=== PATIENT | male | born 1965 | race African-American/Black ===

== ENCOUNTER 2018-02-09 22:11 | Inpatient (IN) | payer SELFPAY ==
[~2018-02-09] VITALS: Ht 172.7 cm; Wt 58.5 kg
--- NOTE | 2018-02-09 22:27 | NUR ---
PT AMBULATORY TO ER BED 7. BURNING SENSATION WHEN URINATING W/ LOWER ABD PAIN X 3 DAYS. PT PLACED ON NITROGLYCERIN NEUTRALIZER. VSS/RESP EVEN UNLABORED/NAD NOTED/SKIN WARM AND DRY/AFEBRILE/DENIES N-V-D/AOX4. AWAITNG MD GARDNER.
--- NOTE | 2018-02-09 22:30 | NUR ---
URINE SPECIMEN OBTAINED AND SENT TO THE LAB.
[2018-02-09 23:11] LABS: APPEARANCE,URINE CLOUDY (CLEAR); BILIRUBIN,URINE NEGATIVE (NEGATIVE); BLOOD, URINE 3+ Ery/uL (NEGATIVE); COLOR,URINE YELLOW (YELLOW); KETONES,URINE NEGATIVE (NEGATIVE); LEUKOCYTE ESTERASE ,URINE 3+ (NEGATIVE); NITRITE, URINE POSITIVE (NEGATIVE); PROTEIN,URINE 2+ mg/dl (NEGATIVE); UGLUCOSE NEGATIVE (NEGATIVE); UROBILINOGEN,URINE 0.2 EU/dL (0.2)
[2018-02-09 23:24] LABS: BACTERIA,URINE Few /HPF (None Seen); SQUAMOUS EPITHELIAL CELL,UR Few /HPF (None Seen); WBC,URINE 51-80 /HPF (0-3)
[2018-02-09] MEDS ORDERED: IV NS 0.9% 1,000 ML BAG IV ONE (23:30)
--- NOTE | 2018-02-09 23:33 | NUR ---
PER RADIOLOGY. US TECH PAGED.
--- NOTE | 2018-02-09 23:44 | NUR ---
18G IV TO L AC X 1 ATTEMPT USING ASEPTIC TECH, BLOOD HANDED OVER TO THE LAB AT BEDSIDE. IV FLUSHES EASILY WITH NS, NO S/S INFILTRATION NOTED AT THIS TIME.
[2018-02-09 23:55] LABS: BASOPHILS % (AUTO) 0.1 % (0.0-2.0); HEMATOCRIT 38 % (39-51); HEMOGLOBIN 12.4 g/dL (13.5-17.5); LYMPHOCYTES % (AUTO) 5.6 % (20.0-44.0); MEAN CORPUSCULAR HEMOGLOBIN 33 PG (26.0-33.0); MEAN CORPUSCULAR HGB CONC 32 g/dl (31.0-36.0); MEAN CORPUSCULAR VOLUME 101 fL (80-96); MONOCYTES # (AUTO) 0.4 /CMM (0.1-1.30); MONOCYTES % (AUTO) 2.6 % (2.0-12.0); NEUTROPHILS # (AUTO) 15.6 /CMM (1.8-8.9); NEUTROPHILS % (AUTO) 91.7 % (43.0-81.0); PLATELET COUNT (AUTO) 421 /CMM (150-450); RDW COEFFICIENT OF VARIATION 13.3 (11.5-15.0); RED BLOOD CELL COUNT(AUTO) 3.81 MIL/uL (4.5-6.0)
--- NOTE | 2018-02-10 00:05 | NUR ---
LAB AT BEDSIDE TO DRAW BLOOD CULTURES.
--- NOTE | 2018-02-10 00:16 | NUR ---
EMT AT BEDSIDE FOR EKG.
--- NOTE | 2018-02-10 00:16 | NUR ---
Brennen alex in [facility] - 02/10/18 at 0016 by JOI EMT AT BEDSIDE FOR DRAW.
[2018-02-10] MEDS ORDERED: CEFTRIAXONE 1 G VIAL ONE (00:23)
--- NOTE | 2018-02-10 00:24 | NUR ---
VINNY AT BEDSIDE
[2018-02-10] MEDS ORDERED: CEFTRIAXONE 1GM BAG (ER ONLY) 50 ML IV ONE (00:30)
[2018-02-10 00:36] LABS: CALCIUM, SERUM 9.2 mg/dL (8.5-10.1); CREATININE 1.3 mg/dL (0.6-1.3); POTASSIUM 4.1 mmol/L (3.5-5.1)
[2018-02-10 00:41] LABS: ALBUMIN 2.4 g/dL (3.4-5.0); BILIRUBIN,DIRECT 0.1 mg/dL (0.0-0.2); BILIRUBIN,TOTAL 0.5 mg/dL (0.2-1.0); TOTAL PROTEIN, SERUM 8.6 g/dL (6.4-8.2)
--- NOTE | 2018-02-10 00:45 | NUR ---
XRAY AT BEDSIDE.
[2018-02-10] MEDS ORDERED: ONDANSETRON HCL/PF 4 MG/2 ML VIAL ONE (00:58)
[2018-02-10] MEDS ORDERED: ACETAMINOPHEN ES 500 MG TABLET ONE (00:58)
[2018-02-10] MEDS ORDERED: KETOROLAC TROMETHAMINE INJ 30 MG/ML VIAL ONE (00:58)
[2018-02-10] MEDS ORDERED: ONDANSETRON HCL/PF - ER 4 MG/2 ML VIAL IV ONE (01:00)
[2018-02-10] MEDS ORDERED: KETOROLAC TROMETHAMINE INJ 30 MG/ML VIAL IV ONE (01:00)
[2018-02-10] MEDS ORDERED: IV NS 0.9% 1,000 ML BAG IV ONE (01:00)
[2018-02-10] MEDS ORDERED: ACETAMINOPHEN ES 500 MG TABLET PO ONE (01:00)
[2018-02-10] MEDS ORDERED: ABAC1TAB15 PO (01:07)
[2018-02-10] MEDS ORDERED: AMLO5TAB7 PO (01:07)
--- NOTE | 2018-02-10 01:13 | NUR ---
CALLED RN SUP FOR MS BED.
--- NOTE | 2018-02-10 01:47 | NUR ---
REPORT GIVEN TO YU ESCOBAR FOR RADHA.
--- NOTE | 2018-02-10 01:52 | NUR ---
CALLED [facility] FOR PANEL CALL FOR ADMISSION.
[2018-02-10 02:20] VITALS: BP 96/63
[2018-02-10 02:30] VITALS: BP 96/63
[2018-02-10] MEDS ORDERED: Z GUARD REMEDY 2 OZ OINT TP PRN (02:30)
[2018-02-10] MEDS ORDERED: MAGNESIUM HYDROXIDE 30 ML UDC PO PRN (02:30)
[2018-02-10] MEDS ORDERED: MORPHINE SULFATE INJ 2 MG/ML DISP.SYRIN IV PRN (02:30)
[2018-02-10] MEDS ORDERED: MAG HYDROX/AL HYDROX/SIMETH 30 ML UDC PO PRN (02:30)
[2018-02-10] MEDS ORDERED: ONDANSETRON HCL/PF 4 MG/2 ML VIAL IVP PRN (02:30)
--- NOTE | 2018-02-10 02:30 | NUR ---
PT TRANSPORTED VIA STRETCHER WITH EMT TO MS 304, VSS.
--- NOTE | 2018-02-10 02:30 | NUR ---
MS PLASTIC ROLLER NOTES PT RECEIVED IN BED, A/O X4, NO S/S OF PAIN OR DISTRESS NOTED, BREATHING EVEN AND UNLABORED ON RA, VS: BP 96/63, P 83, TEMP 100.2, AMBULATORY, LAST BM 3-4 DAYS AGO, SKIN IS DRY AND INTACT, LEFT AC 20G IS PATENT AND INTACT WITH NS RUNNING AT 100ML/HR, RECENTLY CAME FROM A TRIP TO CoupFlip 3-4 DAYS AGO, COMPLAINS OF BURNING SENSATION WHILE URINATING, FAMILY IN [facility], HISTORY OF HIV, HAS GLASSES AND UPPER DENTURES, SAFETY PRECAUTIONS IN PLACE, CALL LIGHT WITHIN REACH, WILL CONTINUE TO MONITOR.
[2018-02-10] MEDS ORDERED: LEVOFLOXACIN 500 MG /D5W 100ML 100 ML IV ONE (02:46)
[2018-02-10] MEDS: ACETAMINOPHEN 325 MG TABLET PO PRN ×2 (02:57→18:21)
[2018-02-10] MEDS: LEVOFLOXACIN 500 MG /D5W 100ML 500 MG in PREMIX 1 EA IV SCH (03:01)
[2018-02-10] MEDS: IV NS 0.9% 1,000 ML IV PRN (03:02)
--- NOTE | 2018-02-10 03:04 | NUR ---
RN NOTES: ONGOING BOLUS FROM ER JUST COMPLETED AT THIS TIME, FLUID CHALLENGE REASSESSMENT WILL BE COMPLETED AN HOUR AFTER THE FLUID CHALLENGE PER PROTOCOL. VS FOLLOWS: 96/63 HR 83 18 100.2 99% ON RA, COOLING MEASURES PROVIDED , REMOVED EXCESS BLANKET, MAKE THE ROOM COOLER, PRN TYLENOL ADMINISTERED FOR 100.2 FEVER, PT ON IV HYDRATION.
[2018-02-10 03:55] VITALS: BP 95/64
--- NOTE | 2018-02-10 06:00 | NUR ---
MS RN CLOSING NOTES PT IS IN BED ASLEEP IN LOWEST AND LOCKED POSITION WITH SIDE RAILS UP X2, NO S/S OF PAIN OR DISTRESS NOTED, BREATHING IS EVEN AND UNLABORED, LEFT AC 20G IS PATENT AND INTACT RUNNING NS @100 ML/HR, MOST RECENT TEMPERATURE WAS 98.2, SAFETY PRECAUTIONS IN PLACE, ALL NEEDS ATTENDED TO, WILL ENDORSE TO DAY SHIFT NURSE FOR RADHA.
[2018-02-10 08:00] VITALS: BP_SYST 112; BP_SYST 167; BP_DIAS 83; BP_DIAS 84
--- NOTE | 2018-02-10 08:01 | NUR ---
MSRN OPENING NOTES. PT RECEIVED A&0X3, TOLERATING ROOM AIR WITHOUT DISTRESS AND DENIES PAIN AT THIS TIME. PT WITH IVC AT L AC INTACT AND OPERATIONAL WITH IVF PER RX. PT WITH 200CC LITE ROSA/BROWN URINE IN COLLECTION. SAMPLE TAKEN. PT ABLE TO VOID THIS AM. PT BED IN LOWEST LOCKED POSITION WITH HNADRAILSX2 AND CALL MEDRANO WITHIN REACH. PT BRIEFED ON TODAY'S POC AND IS WITHOUT CONCERN OR COMPLAIN AT THIS TIME.
[2018-02-10] MEDS: AMLODIPINE BESYLATE 5 MG TABLET PO SCH (09:00)
[2018-02-10] MEDS: PANTOPRAZOLE 40 MG TABLET.DR PO SCH (09:52)
--- NOTE | 2018-02-10 10:30 | NUR ---
PT REPORTS TRIUMEQ WILL BE SUPPLIED FROM HOME TODAY.
[2018-02-10 16:00] VITALS: BP 121/80
[2018-02-10] MEDS: TRIUMEQ PO SCH (16:19)
--- NOTE | 2018-02-10 18:20 | NUR ---
SUNNY. PT WITHOUT BMX5 DAYS AND REPORTING MINOR ABDOMINAL R FLANK PAIN. M.O.M AND WARMED PRUNE JUICE GIVEN. TYLENOL FOR PAIN AT THIS TIME.
--- NOTE | 2018-02-10 18:28 | NUR ---
MSRN CLOSING NOTES. PT WITH FRIEND AT BEDSIDE. PT REMAINS A&0X3, TOLERATING ROOM AIR WITHOUT DISTRESS. PT REPORTING MINOR PAIN TO RIGHT FLANK AND ABDOMINAL, REPORTED CONSTIPATION X5DAYS, MOM AND PRUNE JUICE GIVEN. PT IVC AT L AC INTACT AND OPERATIONAL WITH IVF PER RX. PTS HIV HOME MEDS SUPPLIED. UA SUBMITTED. PT BED IN LOWEST LOCKED POSITION WITH HANDRAILSX2 AND CALL MEDRANO WITHIN REACH. ALL DAY NURSE DUTIES ATTENDED TO AND PT IS WITHOUT CONCERN OR COMPLAIN AT THIS TIME.
--- NOTE | 2018-02-10 19:30 | NUR ---
MS RN NOTE: PATIENT RESTING IN BED, NO ACUTE DISTRESS NOTED. BREATHING EVEN AND UNLABORED, NO SOB NOTED. IV TO LAC IN PLACE, INFUSING NS AT 100 ML/HR. BED LOCKED AND IN LOWEST POSITION, CALL LIGHT IN REACH, WILL CONTINUE TO MONITOR.
[2018-02-10 20:00] VITALS: BP 119/81
[2018-02-10] MEDS: HYDROCODONE/APAP 5/325MG 1 EACH TABLET PO PRN (22:26)
--- NOTE | 2018-02-10 22:45 | NUR ---
MS RN NOTE: PATIENT COMPLAINS OF BACK PAIN 12/04, NORCO 5/325MG ORAL GIVEN PER MD ORDER. WILL CONTINUE TO MONITOR.
[2018-02-11] MEDS: IV NS 0.9% 1,000 ML IV PRN ×2 (02:58→22:56)
[2018-02-11] MEDS: LEVOFLOXACIN 500 MG /D5W 100ML 500 MG in PREMIX 1 EA IV SCH (02:58)
[2018-02-11] MEDS: HYDROCODONE/APAP 10/325MG 1 EA TABLET PO PRN ×2 (03:02→12:10)
--- NOTE | 2018-02-11 03:15 | NUR ---
MS RN NOTE: PATIENT COMPLAINS OF BACK PAIN 02/04, NORCO 10/325MG ORAL GIVEN PER MD ORDER. WILL CONTINUE TO MONITOR.
--- NOTE | 2018-02-11 06:05 | NUR ---
MS RN NOTE: PATIENT RESTING IN BED, NO ACUTE DISTRESS NOTED. BREATHING EVEN AND UNLABORED, NO SOB NOTED. IV TO LAC IN PLACE, INFUSING NS AT 100 ML/HR. BED LOCKED AND IN LOWEST POSITION, CALL LIGHT IN REACH, WILL ENDORSE TO DAY NURSE TO CONTINUE WITH PLAN OF CARE.
[2018-02-11 06:20] LABS: BASOPHILS % (AUTO) 0.3 % (0.0-2.0); EOSINOPHILS % (AUTO) 0.3 % (0.0-6.0); HEMATOCRIT 32 % (39-51); HEMOGLOBIN 10.9 g/dL (13.5-17.5); LYMPHOCYTES % (AUTO) 11.8 % (20.0-44.0); MEAN CORPUSCULAR HEMOGLOBIN 33 PG (26.0-33.0); MEAN CORPUSCULAR HGB CONC 34 g/dl (31.0-36.0); MEAN CORPUSCULAR VOLUME 99 fL (80-96); MONOCYTES # (AUTO) 0.6 /CMM (0.1-1.30); MONOCYTES % (AUTO) 7.3 % (2.0-12.0); NEUTROPHILS # (AUTO) 7.2 /CMM (1.8-8.9); NEUTROPHILS % (AUTO) 80.3 % (43.0-81.0); PLATELET COUNT (AUTO) 356 /CMM (150-450); RDW COEFFICIENT OF VARIATION 12.3 (11.5-15.0); RED BLOOD CELL COUNT(AUTO) 3.28 MIL/uL (4.5-6.0); WHITE BLOOD COUNT (AUTO) 8.8 K/uL (4.3-11.0)
[2018-02-11 06:40] LABS: CALCIUM, SERUM 8.7 mg/dL (8.5-10.1); CREATININE 1.3 mg/dL (0.6-1.3); MAGNESIUM 1.5 mg/dL (1.8-2.4); PHOSPHORUS 2.1 mg/dL (2.5-4.9); POTASSIUM 3.7 mmol/L (3.5-5.1)
[2018-02-11 07:03] LABS: THYROID STIMULATING HORMONE 1.874 uIU/mL (0.358-3.74)
--- NOTE | 2018-02-11 07:51 | NUR ---
RN OPENING NOTES RECEIVED PT. A/OX3. PT IS STABLE AND SLEEPING. NO S/S OF RESP DISTRESS OR SOB. NO C/O PAIN AT THIS TIME. IV ACCESS LOCATED ON LAC 20G INFUSING NS AT 100 ML/HR. AWAITING RESULTS OF URINE/BLOOD CX. SAFETY MEASURES IN PLACE, CALL LIGHT WITHIN REACH. WILL ENDORSE TO BASEBALL PLAYER FOR RADHA.
[2018-02-11] MEDS: AMLODIPINE BESYLATE 5 MG TABLET PO SCH (08:16)
[2018-02-11] MEDS: TRIUMEQ PO SCH (08:16)
[2018-02-11] MEDS: PANTOPRAZOLE 40 MG TABLET.DR PO SCH (08:16)
[2018-02-11 08:30] VITALS: BP 128/87
[2018-02-11 10:00] VITALS: BP 128/87
[2018-02-11] MEDS: Magnesium 1GM/D5W 100ML PREMIX 100 ML IV SCH ×2 (10:45→11:00)
[2018-02-11] MEDS ORDERED: K PHOS NEUTRAL 250 MG TABLET PO ONE (11:00)
[2018-02-11 16:00] VITALS: BP 119/77
--- NOTE | 2018-02-11 18:29 | NUR ---
RN CLOSING NOTES PT IN BED RESTING. NO S/S OF RESP DISTRESS OR SOB. NO C/O PAIN AT THIS TIME. IV MAGNESIUM REPLACEMENT ADMINISTERED X2 BAGS. AWAITING RESULTS OF BLOOD/URINE CX PRIOR TO D/C. PER MD, POSSIBLE DC IN AM. SAFETY MEASURES IN PLACE, CALL LIGHT WITHIN REACH. WILL ENDORSE TO PRINCIPAL GIFTS OFFICER FOR RADHA.
--- NOTE | 2018-02-11 19:00 | NUR ---
RN OPENING NOTES PT AWAKE AND ALERT, SITTING IN BED. PT IN ROOM AIR, NO SIGNS OF LABORED BREATHING. IV ACCESS ON THE LEFT FOREARM 22G IS PATENT AND INTACT. SKIN IS INTACT. PT FAMILY IS AT BEDSIDE. DENIES ANY PAIN. SAFETY MEASURES IN PLACED, CALL LIGHT WITHIN REACH. WILL CONTINUE TO MONITOR AND ASSESS.
[2018-02-11 20:00] VITALS: BP 134/95
[2018-02-11] MEDS: HYDROCODONE/APAP 5/325MG 1 EACH TABLET PO PRN (22:29)
--- NOTE | 2018-02-11 22:29 | NUR ---
YU NOTES PT GIVEN NORCO FOR PAIN AND TO HELP HIM FALL ASLEEP Addendum: 02/12/18 at 0622 by HOMERO OVERTON RN NORCO GIVEN FOR RIGHT LOWER BACK PAIN
[2018-02-12] MEDS: LEVOFLOXACIN 500 MG /D5W 100ML 500 MG in PREMIX 1 EA IV SCH (01:34)
--- NOTE | 2018-02-12 06:33 | NUR ---
RN CLOSING NOTES PT AWAKE AND ALERT, SITTING IN BED. PT IN ROOM AIR, NO SIGNS OF LABORED BREATHING. IV ACCESS ON THE LEFT FOREARM 22G IS PATENT AND INTACT. SKIN IS INTACT. DENIES ANY PAIN. SAFETY MEASURES IN PLACED, CALL LIGHT WITHIN REACH. WILL ENDORSED CONTINUITY OF CARE TO THE ONCOMING NURSE.
[2018-02-12 07:01] LABS: CALCIUM, SERUM 9.1 mg/dL (8.5-10.1); CREATININE 1.1 mg/dL (0.6-1.3); MAGNESIUM 1.7 mg/dL (1.8-2.4); POTASSIUM 4.1 mmol/L (3.5-5.1)
--- NOTE | 2018-02-12 07:30 | NUR ---
ms rn received on bed, awake,alert,oriented x4,not in any form of distress, respirations even and unlabored, no sob noted, denies pain at this time, will monitor pt.
[2018-02-12 07:39] LABS: BASOPHILS # (AUTO) 0.1 /CMM (0.0-0.2); EOSINOPHILS % (AUTO) 0.6 % (0.0-6.0); HEMATOCRIT 33 % (39-51); HEMOGLOBIN 11.1 g/dL (13.5-17.5); LYMPHOCYTES # (AUTO) 1.2 /CMM (0.8-4.8); LYMPHOCYTES % (AUTO) 22.2 % (20.0-44.0); MEAN CORPUSCULAR HEMOGLOBIN 33 PG (26.0-33.0); MEAN CORPUSCULAR HGB CONC 34 g/dl (31.0-36.0); MEAN CORPUSCULAR VOLUME 99 fL (80-96); MONOCYTES # (AUTO) 0.5 /CMM (0.1-1.30); MONOCYTES % (AUTO) 8.8 % (2.0-12.0); NEUTROPHILS # (AUTO) 3.8 /CMM (1.8-8.9); NEUTROPHILS % (AUTO) 67.4 % (43.0-81.0); PLATELET COUNT (AUTO) 367 /CMM (150-450); RDW COEFFICIENT OF VARIATION 12.5 (11.5-15.0); RED BLOOD CELL COUNT(AUTO) 3.37 MIL/uL (4.5-6.0); WHITE BLOOD COUNT (AUTO) 5.6 K/uL (4.3-11.0)
[2018-02-12 08:00] VITALS: BP 128/86
--- NOTE | 2018-02-12 09:00 | NUR ---
ms thorpe breakfast served,due meds given,tolerated well.
--- NOTE | 2018-02-12 09:30 | NUR ---
ms maurilio was seen by md w/ orders made and carried out.
[2018-02-12] MEDS: PANTOPRAZOLE 40 MG TABLET.DR PO SCH (09:45)
[2018-02-12] MEDS: TRIUMEQ PO SCH (09:45)
[2018-02-12] MEDS: AMLODIPINE BESYLATE 5 MG TABLET PO SCH (09:46)
[2018-02-12] MEDS ORDERED: MORPHINE SULFATE INJ 4 MG/ML DISP.SYRIN IV PRN (10:32)
[2018-02-12] MEDS: ACETAMINOPHEN 325 MG TABLET PO PRN (13:19)
[2018-02-12] MEDS: Magnesium 1GM/D5W 100ML PREMIX 100 ML IV SCH ×2 (13:20→18:21)
[2018-02-12 16:00] VITALS: BP 115/80
--- NOTE | 2018-02-12 18:00 | NUR ---
MS RN ON BED, NO DISTRESS NOTED.
[2018-02-12] MEDS: IV NS 0.9% 1,000 ML IV PRN (18:18)
[2018-02-12] MEDS: ENSURE ENLIVE 237 ML LIQUID (VANILLA) PO SCH (18:18)
--- NOTE | 2018-02-12 19:00 | NUR ---
RN OPENING NOTES PT AWAKE AND ALERT IN BED. PT COMPLAINS OF PAIN OF THE ABDOMEN. PT UNABLE TO TAKE PRN MEDICATIONS, PT WILL HAVE ANOTHER MRCP OF THE ABD AT 1930 PER DAY SHIFT NURSE LOLY. PT HAS A RIGHT FA #22 INTACT AND RUNNING LR@100 ML/HR. SAFETY PRECAUTIONS IN PLACE, WILL CONTINUE TO MONITOR. Addendum: 02/12/18 at 2150 by CONNIE ARZATE RN WRONG PATIENT.
--- NOTE | 2018-02-12 19:05 | NUR ---
RN OPENING NOTES PATIENT AWAKE AND RESTING IN BED. NO COMPLAINTS OF PAIN, SOB, OR DISTRESS AT THIS TIME. PT HAS A LEFT FA #22 IV RUNNING NS @100 ML/HR, PT TOLERATING FLUIDS WELL. PER PATIENT HE WOULD LIKE TO GO BACK HOME TOMORROW. SAFETY PRECAUTIONS IN PLACE, BED IN LOWEST LOCKED POSITION, X2 SIDE RAILS UP, AND CALL LIGHT WITHIN REACH. WILL CONTINUE TO MONITOR.
--- NOTE | 2018-02-12 19:30 | NUR ---
YU NOTES PT OFF UNIT FOR IMAGING, LEFT VIA WHEELCHAIR. Addendum: 02/12/18 at 2149 by CONNIE ARZATE RN WRONG PATIENT.
[2018-02-12 20:00] VITALS: BP 127/91
[2018-02-13] MEDS: IV NS 0.9% 1,000 ML IV PRN (04:55)
--- NOTE | 2018-02-13 06:54 | NUR ---
RN CLOSING NOTES PATIENT AWAKE AND RESTING IN BED. NO COMPLAINTS OF PAIN, SOB, OR DISTRESS OVERNIGHT. PT HAS A LEFT FA #22 IV RUNNING NS @100 ML/HR, PT TOLERATING FLUIDS WELL. PER PATIENT HE WOULD LIKE TO GO BACK HOME TODAY BEFORE 1200. SAFETY PRECAUTIONS IN PLACE, BED IN LOWEST LOCKED POSITION, X2 SIDE RAILS UP, AND CALL LIGHT WITHIN REACH. WILL ENDORSE TO DAY SHIFT NURSE FOR CONTINUITY OF CARE.
[2018-02-13 06:59] LABS: CALCIUM, SERUM 9.2 mg/dL (8.5-10.1); CREATININE 1.2 mg/dL (0.6-1.3); MAGNESIUM 1.9 mg/dL (1.8-2.4); PHOSPHORUS 3.5 mg/dL (2.5-4.9); POTASSIUM 3.7 mmol/L (3.5-5.1)
[2018-02-13 07:10] LABS: BASOPHILS # (AUTO) 0.1 /CMM (0.0-0.2); BASOPHILS % (AUTO) 1.2 % (0.0-2.0); EOSINOPHILS % (AUTO) 0.6 % (0.0-6.0); HEMATOCRIT 34 % (39-51); HEMOGLOBIN 11.2 g/dL (13.5-17.5); LYMPHOCYTES # (AUTO) 1.5 /CMM (0.8-4.8); LYMPHOCYTES % (AUTO) 30.9 % (20.0-44.0); MEAN CORPUSCULAR HEMOGLOBIN 33 PG (26.0-33.0); MEAN CORPUSCULAR HGB CONC 33 g/dl (31.0-36.0); MEAN CORPUSCULAR VOLUME 99 fL (80-96); MONOCYTES # (AUTO) 0.7 /CMM (0.1-1.30); NEUTROPHILS # (AUTO) 2.5 /CMM (1.8-8.9); NEUTROPHILS % (AUTO) 53.3 % (43.0-81.0); PLATELET COUNT (AUTO) 391 /CMM (150-450); RDW COEFFICIENT OF VARIATION 12.4 (11.5-15.0); RED BLOOD CELL COUNT(AUTO) 3.43 MIL/uL (4.5-6.0); WHITE BLOOD COUNT (AUTO) 4.8 K/uL (4.3-11.0)
--- NOTE | 2018-02-13 07:35 | NUR ---
MS RN RECEIVED ON BED,AWAKE,ALERT,ORIENTED X4,NOT IN ANY FORM OF DISTRESS, RESPIRATIONS EVEN AND UNLABORED,NO SOB NOTED, LUNGS ARE CLEAR,ABDOMEN SOFT,POSITIVE BOWEL SOUNDS,DENIES PAIN AT THIS TIME, WILL MONITOR PATIENT'S CONDITION.
--- NOTE | 2018-02-13 07:45 | NUR ---
MS RN WAS SEEN BY MD Allred/ ORDER TO GO HOME TODAY.
[2018-02-13] MEDS ORDERED: LEVO500T90 PO (07:51)
[2018-02-13 08:00] VITALS: BP 148/94
[2018-02-13] MEDS ORDERED: LEVOFLOXACIN (500MG) 500 MG TABLET PO SCH (09:00)
[2018-02-13] MEDS: ENSURE ENLIVE 237 ML LIQUID (VANILLA) PO SCH (09:00)
--- NOTE | 2018-02-13 09:20 | NUR ---
MS YU BREAKFAST SERVED,DUE MEDS GIVEN, REFUSED ENSURE, TOLERATED WELL.
[2018-02-13] MEDS: TRIUMEQ PO SCH (09:33)
[2018-02-13 09:34] VITALS: BP 149/94
[2018-02-13] MEDS: AMLODIPINE BESYLATE 5 MG TABLET PO SCH (09:34)
[2018-02-13] MEDS: PANTOPRAZOLE 40 MG TABLET.DR PO SCH (09:42)
--- NOTE | 2018-02-13 10:00 | NUR ---
MS RN READY FOR DISCHARGE, INSTRUCTIONS GIVEN AND WELL UNDERSTOOD.
--- NOTE | 2018-02-13 10:30 | NUR ---
MS RN WENT HOME VIA UBER, NO DISTRESS NOTED,ALL NEEDS ATTENDED.
== END 2018-02-13 11:15 | disposition home or self-care (01) | DRG 871 ==
LOC: ER 22:16 → MED 02-10 01:31
PROVIDERS: ADMIT Registered Nurse; ATTEND Registered Nurse
DX: A41.9 Sepsis, unspecified organism (principal); K85.90 Acute pancreatitis without necrosis or infection, unspecified; E44.0 Moderate protein-calorie malnutrition; N12 Tubulo-interstitial nephritis, not specified as acute or chronic; N39.0 Urinary tract infection, site not specified; I10 Essential (primary) hypertension; F17.210 Nicotine dependence, cigarettes, uncomplicated; Z79.899 Other long term (current) drug therapy; D63.8 Anemia in other chronic diseases classified elsewhere; D50.9 Iron deficiency anemia, unspecified; B96.89 Other specified bacterial agents as the cause of diseases classified elsewhere; B96.20 Unspecified Escherichia coli [E. coli] as the cause of diseases classified elsewhere; K59.00 Constipation, unspecified; Z82.49 Family history of ischemic heart disease and other diseases of the circulatory system
CPT/HCPCS: 36415; 71045-TC; 76705-TC; 80048-TC; 80061-TC; 80076-TC; 81000-TC; 83540-TC; 83605-TC; 83690-TC; 83735-TC; 84100-TC; 84443-TC; 85025-TC; 87040-TC; 87081-TC; 87086-TC; 87186-TC; 87491; 87591; A4216; A4606; J0696; J1885; J1956; J2405; J3475; J7030; J7120; Z7610